=== PATIENT | male | born 1950 | race Caucasian/White ===

== ENCOUNTER 2021-11-19 16:36 | Emergency (ER) | payer OTHER ==
[2021-11-19 17:06] VITALS: BP 159/76; PULSE 77; RESP 18
[2021-11-19 17:35] LABS: HCT 44.4 % (39.0-53.0); HGB 14.4 gm/dL (13.0-17.5); MCH 30.8 pg (25.0-35.0); MCHC 32.4 g/dL (31.0-37.0); Mean Platelet Volume 7.8; Platelet Count 383 k/uL (150-450); RBC 4.67 m/uL (4.30-5.90); RDW 13.9 % (11.5-15.5); WBC 13.3 k/uL (3.8-10.6)
[2021-11-19 17:45] LABS: Albumin 4.4 g/dL (3.5-5.0); Calcium 10.1 mg/dL (8.4-10.2); Potassium 4.1 mmol/L (3.5-5.1); Total Protein 7.7 g/dL (6.3-8.2)
[2021-11-19 17:48] LABS: Appearance,Urine Clear (Clear); Bilirubin,Urine 2+ (Negative); Blood,Urine Negative (Negative); Color,Urine Dark Yellow; Glucose,Urine (UA) Negative (Negative); Hyaline Casts,Urine 9 /lpf (0-2); Ketones,Urine Negative (Negative); Leukocyte Esterase,Urine Negative (Negative); Mucus,Urine Rare /hpf; Nitrite,Urine Negative (Negative); PH, Urine 5.5 (5.0-8.0); Protein,Urine 1+ (Negative); RBC,Urine 1 /hpf (0-5); Specific Gravity,Urine 1.018 (1.001-1.035); Squamous Epithelial Cell,Urine <1 /hpf (0-4); WBC,Urine 1 /hpf (0-5)
[2021-11-19] MEDS ORDERED: SODIUM CHLORIDE 0.9% 1,000 ML IV STA (18:32)
--- NOTE | 2021-11-19 20:41 | CT ---
EXAMINATION TYPE: CT abdomen pelvis w con CT DLP: 2236 mGycm, Automated exposure control for dose reduction was used. DATE OF EXAM: 11/19/2021 7:53 PM COMPARISON: None. CLINICAL INDICATION:Male, 71 years old with history of abdominal pain, acute, nonlocalized; TECHNIQUE: Standard CT of the abdomen and pelvis following the administration of 100 cc of Isovue 3 00 IV contrast material. Coronal and sagittal reformats were performed. FINDINGS: LOWER CHEST: Unremarkable ABDOMEN LIVER: Unremarkable GALLBLADDER AND BILE DUCTS: There is intrahepatic and extra hepatic biliary ductal dilatation. Densit y debris is seen within the bile duct. There is distended gallbladder present with layering low-level debris. PANCREAS: Unremarkable. SPLEEN: Unremarkable. ADRENAL GLANDS: Hypoattenuating lesion within the right adrenal gland edging up to 5.8 x 5.2 cm consi stent with myolipoma. KIDNEYS AND URETERS: No evidence of hydronephrosis or renal calculus. The ureters are unremarkable. L ateral to small to characterize cysts . symmetric bilateral perinephric fat stranding. PELVIS BLADDER: Nondistended and grossly unremarkable.. REPRODUCTIVE: Unremarkable. ABDOMEN & PELVIS STOMACH AND BOWEL: No evidence of bowel obstruction. The appendix is visualized and unremarkable. PERITONEUM: No evidence of pneumoperitoneum or free fluid. VASCULATURE: Mild atherosclerotic calcifications are present throughout the abdominal aorta and its b ranches. MUSCULOSKELETAL: Mild disc degeneration changes are present throughout the thoracolumbar spine.. Righ t gluteus medius intramuscular lipoma. Multilevel disc bulging is seen throughout the spine. LYMPH NODES: No gross evidence for lymphadenopathy. SOFT TISSUE/ABDOMINAL WALL: Unremarkable IMPRESSION: 1. Findings concerning for choledocholithiasis with biliary obstruction with a dilated gallbladder o n transaxial hepatic biliary ductal dilatation pronounced in the common hepatic duct multiple filling defects seen within the common bile duct likely representing gallstones/choledocholithiasis. ERCP is recommended for definitive treatment. 2. Right adrenal myolipoma.
--- NOTE | 2021-11-19 20:43 | US ---
EXAMINATION TYPE: US gallbladder DATE OF EXAM: 11/19/2021 COMPARISON: NONE CLINICAL HISTORY: abdominal pain, acute, nonlocalized. Epigastric pain, RUQ pain, nausea EXAM MEASUREMENTS: Liver Length: 15.5 cm Gallbladder Wall: 0.4 cm CBD: 1.7 cm Right Kidney: 12.3 x 5.2 x 4.2 cm Pancreas: Tail obscured by overlying bowel gas, visualized portions appear heterogeneous. Duct = 0.4 cm Liver: dilated intrahepatic ducts Gallbladder: multiple stones. Borderline hydropic = 10.2cm Evidence for sonographic De La Torre's sign: no CBD: dilated Right Kidney: no evidence of hydronephrosis IMPRESSION: 1. Cholelithiasis with dilated common bile duct measuring up to 17 mm. Consider mesenteritis can if c oncern for cholecystitis. Consider MRCP if concerned for choledocholithiasis. 2. Hepatic steatosis with intrahepatic ductal dilatation.
[2021-11-19 21:07] LABS: Prothrombin Time 10.6 sec (9.0-12.0)
[2021-11-19 21:17] LABS: Partial Thromboplastin Time 21.6 sec (22.0-30.0)
[2021-11-19] MEDS ORDERED: cefTRIAXone IN SWFI 1,000 MG/10 ML SYRINGE IVP STA (21:27)
--- NOTE | 2021-11-19 21:50 | ED ---
General Adult HPI - General Chief complaint: Urogenital Stated complaint: abd pain Time Seen by Provider: 11/19/21 17:47 Source: patient, RN notes reviewed, old records reviewed Mode of arrival: ambulatory Limitations: no limitations - History of Present Illness Initial comments: Patient is a 71-year-old male with past medical history that is remarkable for hypertension. He presents emergency Department complaining of nonspecific right-sided abdominal discomfort. I evaluated the patient once he was placed in a room. This is been ongoing for multiple days. He has also notices urine has become more dark. He has not noticed any skin changes. Nurse's he is having difficulty tolerating any form of by mouth intake, however is still able to drink water. Denies any diarrhea, nausea, vomiting. States he has decreased appetite. Denies any fevers, chills, sick contacts, chest pain, cough. Denies any shortness of breath. His no history of abdominal surgery. Denies any change in bowel movements. Presents emergency department over concern for his abdominal discomfort of unknown etiology. Laboratory studies were started in triage. - Related Data Home Medications Medication Instructions Recorded Confirmed Allopurinol [Zyloprim] 50 mg PO DAILY 11/19/21 11/19/21 Lisinopril [Zestril] 10 mg PO DAILY 11/19/21 11/19/21 [place]-3 Fatty Acids/Fish Oil [Fish 1 cap PO DAILY 11/19/21 11/19/21 Oil 1,000 mg Softgel] amLODIPine [Norvasc] 5 mg PO DAILY 11/19/21 11/19/21 atenoloL [Tenormin] 25 mg PO DAILY 11/19/21 11/19/21 Allergies Allergy/AdvReac Type Severity Reaction Status Date / Time No Known Allergies Allergy Verified 11/19/21 22:04 Review of Systems ROS Statement: Those systems with pertinent positive or pertinent negative responses have been documented in the HPI. Review of Systems: CONST: Denies fever EYES: Denies blurry vision ENT: Denies nasal congestion C/V: Denies Chest pain RESP: Denies shortness of breath GI: Endorses abdominal pain : Denies dysuria SKIN: Denies rash. MSK: Denies joint pain. NEURO: Denies headache ROS Other: All systems not noted in ROS Statement are negative. Past Medical History Past Medical History: Hypertension History of Any Multi-Drug Resistant Organisms: None Reported Past Surgical History: No Surgical Hx Reported Past Psychological History: PTSD Smoking Status: Current every day smoker Past Alcohol Use History: None Reported Past Drug Use History: None Reported General Exam - General Exam Comments Initial Comments: General: Appears in no acute distress. HEAD: Normal with no signs of head trauma. EYES: PERRLA, EOMI. Patient does have some scleral icterus. ENT: Hearing grossly intact, normal oropharynx. RESPIRATORY: Clear breath sounds bilaterally. No wheezes, rales, or rhonchi. C/V: Regular rate and rhythm. S1 and S2 auscultated, no edema, peripheral pulses 2+ and intact throughout ABD: Abdomen is soft, nondistended. He is pretty much nontender to palpation, with mild tenderness in the right upper quadrant. No CVA tenderness on percussion. No rebound tenderness, guarding, peritoneal signs. EXT: Normal range of motion, no obvious deformity SKIN: No rashes or lesions observed on exposed skin. NEURO: Alert and oriented 4. Limitations: no limitations Course Vital Signs 11/19/21 17:00 Temperature 97.8 F Pulse Rate 77 Respiratory 18 Rate Blood Pressure 159/76 O2 Sat by Pulse 96 Oximetry Medical Decision Making - Medical Decision Making Based on the patient's presentation and physical exam, I'm concerned for possible acute intra-abdominal process for this patient, including hepatobiliary disease. Basic laboratory studies were already ordered and I will add on a dditional studies. He does have some signs of elevated bilirubins. We will also obtain CT and pelvis as well as ultrasound of the gallbladder in addition to providing 1 L fluid bolus. He declines analgesia at this time. Laboratory studies were remarkable for mild leukocytosis of 13. Patient does show signs of biliary obstruction, with elevated AST of 92, ALT of 204, alk phos of 302. Total bilirubin is 6.0. Albumin is within normal limits at 4.4. Bilirubin fractures were ordered but are still pending at this time. Urine is remarkable for dark in color, as well as 2+ bilirubin coags are within normal limits. Patient's ultrasound and CT imaging were remarkable for findings concerning for choledocholithiasis as well as increased size of the CBD. Is also hepatic psittacosis and intrahepatic ductal dilation ultrasound. There is also a right adrenal myelolipoma. Both imaging studies recommend follow-up studies of ERCP or MRCP for treatment. Patient will be given a dose of Rocephin at this time, for possible cholecystitis. On reevaluation, patient remains relatively stable. Vital signs remained stable throughout his stay. Denies any significant abdominal pain or change in status. His symptoms of been ongoing for multiple days. I discussed the findings on laboratory studies and imaging. The patient expressed understanding. He does require I and neurology evaluation, however we do not have gastroenterology at our facility for the next 2 weeks. Therefore the patient requires transfer. Patient is requesting transfer to [facility] at this time. We spoke with [facility] over the phone, however they state that they are not accepting any chances. I did discuss this with the patient, and he understands that he requires gastroenterology to be treated which we do not have our facility. They elected to leave AGAINST MEDICAL ADVICE with likely follow-up with a another facility, as they are well aware that transferring during the caring COVID-19 pandemic is extremely difficult..The patient was apprised of the potential risks of leaving the hospital AGAINST MEDICAL ADVICE, including serious complications, permanent disability, and . At the time of my interview the patient, the patient was alert, oriented, and capable. Patient signed AMA form, which was witnessed and signed by nursing staff, and placed in patient's chart. I urged the patient to return to the hospital as soon as possible to complete evaluation and treatment. The patient did request that I discharged him with his laboratory studies, imaging, as well as imaging disc which I can provide with him. I did speak with him that it is imperative that if he does not return to this hospital, he needs to return for further care with a GI specialist. He expressed understanding. Patient therefore left AGAINST MEDICAL ADVICE. - Lab Data Result diagrams: 11/19/21 17:25 11/19/21 17:25 Lab Results 11/19/21 11/19/21 11/19/21 Range/Units 17:25 17:25 17:25 WBC 13.3 H (3.8-10.6) k/uL RBC 4.67 (4.30-5.90) m/uL Hgb 14.4 (13.0-17.5) gm/dL Hct 44.4 (39.0-53.0) % MCV 95.0 (80.0-100.0) fL MCH 30.8 (25.0-35.0) pg MCHC 32.4 (31.0-37.0) g/dL RDW 13.9 (11.5-15.5) % Plt Count 383 (150-450) k/uL MPV 7.8 PT (9.0-12.0) sec INR (<1.2) APTT (22.0-30.0) sec Sodium 137 (137-145) mmol/L Potassium 4.1 (3.5-5.1) mmol/L Chloride 102 (98-107) mmol/L Carbon Dioxide 24 (22-30) mmol/L Anion Gap 11 mmol/L BUN 24 H (9-20) mg/dL Creatinine 1.06 (0.66-1.25) mg/dL Est GFR (CKD-EPI)AfAm 81 (>60 ml/min/1.73 sqM) Est GFR (CKD-EPI)NonAf 70 (>60 ml/min/1.73 sqM) Glucose 119 H (74-99) mg/dL Calcium 10.1 (8.4-10.2) mg/dL Total Bilirubin 6.0 H (0.2-1.3) mg/dL AST 92 H (17-59) U/L ALT 204 H (4-49) U/L Alkaline Phosphatase 302 H (38-126) U/L Total Protein 7.7 (6.3-8.2) g/dL Albumin 4.4 (3.5-5.0) g/dL Urine Color Dark Yellow Urine Appearance Clear (Clear) Urine pH 5.5 (5.0-8.0) Ur Specific [place] 1.018 (1.001-1.035) Urine Protein 1+ H (Negative) Urine Glucose (UA) Negative (Negative) Urine Ketones Negative (Negative) Urine Blood Negative (Negative) Urine Nitrite Negative (Negative) Urine Bilirubin 2+ H (Negative) Urine Urobilinogen 6.0 (<2.0) mg/dL Ur Leukocyte Esterase Negative (Negative) Urine RBC 1 (0-5) /hpf Urine WBC 1 (0-5) /hpf Ur Squamous Epith Cells <1 (0-4) /hpf Hyaline Casts 9 H (0-2) /lpf Urine Mucus Rare H (None) /hpf 11/19/21 Range/Units 19:27 WBC (3.8-10.6) k/uL RBC (4.30-5.90) m/uL Hgb (13.0-17.5) gm/dL Hct (39.0-53.0) % MCV (80.0-100.0) fL MCH (25.0-35.0) pg MCHC (31.0-37.0) g/dL RDW (11.5-15.5) % Plt Count (150-450) k/uL MPV PT 10.6 (9.0-12.0) sec INR 1.0 (<1.2) APTT 21.6 L (22.0-30.0) sec Sodium (137-145) mmol/L Potassium (3.5-5.1) mmol/L Chloride (98-107) mmol/L Carbon Dioxide (22-30) mmol/L Anion Gap mmol/L BUN (9-20) mg/dL Creatinine (0.66-1.25) mg/dL Est GFR (CKD-EPI)AfAm (>60 ml/min/1.73 sqM) Est GFR (CKD-EPI)NonAf (>60 ml/min/1.73 sqM) Glucose (74-99) mg/dL Calcium (8.4-10.2) mg/dL Total Bilirubin (0.2-1.3) mg/dL AST (17-59) U/L ALT (4-49) U/L Alkaline Phosphatase (38-126) U/L Total Protein (6.3-8.2) g/dL Albumin (3.5-5.0) g/dL Urine Color Urine Appearance (Clear) Urine pH (5.0-8.0) Ur Specific [place] (1.001-1.035) Urine Protein (Negative) Urine Glucose (UA) (Negative) Urine Ketones (Negative) Urine Blood (Negative) Urine Nitrite (Negative) Urine Bilirubin (Negative) Urine Urobilinogen (<2.0) mg/dL Ur Leukocyte Esterase (Negative) Urine RBC (0-5) /hpf Urine WBC (0-5) /hpf Ur Squamous Epith Cells (0-4) /hpf Hyaline Casts (0-2) /lpf Urine Mucus (None) /hpf Disposition Clinical Impression: Choledocholithiasis, Left against medical advice, Hyperbilirubinemia, Scleral icterus, Biliary obstruction Disposition: Left Against Medical Advice Condition: Stable Instructions (If sedation given, give patient instructions): Gallstones (ED) Additional Instructions: You have choledocholithiasis, which is a gallstone obstruction of your Biliary duct. Requires gastroenterology for treatment. As you are leaving AMA, please follow up as soon as possible at a facility with gastroenterology present. Is patient prescribed a controlled substance at d/c from ED?: No Referrals: Nonstaff,Physician [Primary Care Provider] - 1-2 days
[2021-11-19 22:47] VITALS: TEMP 97.6
== END 2021-11-19 22:40 | disposition left against medical advice (07) ==
LOC: EC 16:36
DX: E80.6 Other disorders of bilirubin metabolism (principal); K80.51 Calculus of bile duct without cholangitis or cholecystitis with obstruction; R17 Unspecified jaundice; F17.200 Nicotine dependence, unspecified, uncomplicated; I10 Essential (primary) hypertension; Z79.899 Other long term (current) drug therapy; Z53.29 Procedure and treatment not carried out because of patient's decision for other reasons
CPT/HCPCS: 36415; 80053; 85027; 85610; 85730; 81001; 76705; 74177; 99284; 96374; 96361; J0696; Q9967

== ENCOUNTER → 2022-08-03 | Outpatient (CLI) | payer OTHER | END | disposition home or self-care (01) | LOC: LABPAT 13:04 | PROVIDERS: ATTEND Orthopaedic Surgery | DX: Z01.812 Encounter for preprocedural laboratory examination (principal); M16.12 Unilateral primary osteoarthritis, left hip; Z22.322 Carrier or suspected carrier of Methicillin resistant Staphylococcus aureus | CPT/HCPCS: 87070 ==

== ENCOUNTER 2022-08-09 11:04 | Day surgery (SDC) | payer OTHER ==
[2022-08-04 16:12] VITALS: BMI 33.6
--- NOTE | 2022-08-08 09:15 | P.HPOR ---
History of Present Illness H&P Date: 08/08/22 Chief Complaint: Left hip pain The patient is a 71-year-old retired male who presents with progressive left hip pain for the past several years worsening recently. He notes anterior thigh and groin pain worse with weightbearing activities. He has a difficult time getting up from a seated position. He is having night symptoms. He is ambulating with a cane. Review of Systems As per HPI Past Medical History Past Medical History: Blood Disorder, Hypertension, Osteoarthritis (OA) Additional Past Medical History / Comment(s): "Elevated WBC on and off for years." Gout. History of Any Multi-Drug Resistant Organisms: None Reported Past Surgical History: Cholecystectomy, Hernia Repair Past Anesthesia/Blood Transfusion Reactions: No Reported Reaction Past Psychological History: PTSD Smoking Status: Current every day smoker Past Alcohol Use History: None Reported Additional Past Alcohol Use History / Comment(s): Has been smoking for 50 yrs, 1 ppd. "No alcohol in over 20 yrs." Past Drug Use History: None Reported Additional Drug Use History / Comment(s): CBD Oils. - Past Family History Mother Family Medical History: No Reported History Medications and Allergies Home Medications Medication Instructions Recorded Confirmed Type allopurinoL [Zyloprim] 50 mg PO DAILY 11/19/21 08/04/22 History atenoloL [Tenormin] 25 mg PO DAILY 11/19/21 08/04/22 History Acetaminophen [Tylenol Arthritis] 650 mg PO DIRECTED PRN 08/04/22 08/04/22 History HYDROcodone/APAP 5-325MG [Madeline 1 tab PO Q8H PRN 08/04/22 08/04/22 History 5-325] Lisinopril-Hctz 20-25 mg 1 tab PO DAILY 08/04/22 08/04/22 History [Zestoretic 20-25] Melatonin (Dose Unknown) 1 tab PO HS 08/04/22 08/04/22 History Vitamin C (Unknown Dose) 1 tab PO DAILY 08/04/22 08/04/22 History Vitamin D (Dose Unknown) 1 tab PO DAILY 08/04/22 08/04/22 History amLODIPine BESYLATE 5 mg PO DAILY 08/04/22 08/04/22 History Allergies Allergy/AdvReac Type Severity Reaction Status Date / Time No Known Allergies Allergy Verified 08/04/22 15:51 Physical Examination - Hip left Gait: antalgic Tenderness with palpation: anterior Pain with motion: internal rotation and hip flexion ROM: flexion: 80 degrees ROM: internal rotation: 0 degrees ROM: external rotation: 60 degrees Strength: extension: 5/5 Strength: flexion: 5/5 Strength: abduction: 5/5 Tests: impingement tests: positive Results The patient is a well-developed well-nourished male. 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 HEENT exam is nonfocal, neck is supple. He has limited painful motion of his left hip. Clinically he has 1 cm of shortening of the left lower extremity compared the right. He has an antalgic gait pattern. His distal neurovascular appears intact in the left lower extremity. - Diagnostic results Hip x-ray: image reviewed (Left hip 2 view show severe osteoarthrosis with [id number] changes and subchondral sclerosis.) Assessment and Plan Assessment: Left hip severe osteoarthrosis Plan: I talked with the patient length regarding his condition along with treatment options. He is significantly limited because of pain related to his osteoarthrosis despite previous conservative measures. After thorough discussion has proceed with surgery. We'll plan to proceed with left total hip arthroplasty utilizing a lateral approach. Risks and benefits were discussed at length in layman's terms. We will institute DVT prophylaxis postoperatively. Time with Patient: Less than 30
[~2022-08-09 11:04] MED LIST: ACETAMINOPHEN TAB 500 MG TAB PO PRN; DEXAMETHASONE SOD PHOSPHATE 4 MG/ML 1 ML VIAL IV ONE; LIDOCAINE 1% (10MG/ML) FOR IV START INTRADERMA PRN; MELOXICAM 7.5 MG TAB PO PRN; ONDANSETRON 4 MG/2 ML VIAL IVP ONE; TRANEXAMIC ACID IN NACL,ISO-OS 1,000 MG in SALINE 1 100ML.BAG IVPB PRN
[2022-08-09] MEDS: LACTATED RINGERS 1,000 ML IV SCH ×2 (11:57→21:54)
[2022-08-09] MEDS ORDERED: MIDAZOLAM 2 MG/2 ML VIAL IVP ONE (12:01)
[2022-08-09] MEDS ORDERED: fentaNYL (PF) 50 MCG/ML 2 ML AMP IVP ONE (12:01)
[2022-08-09] MEDS ORDERED: HYDROmorphone (PF) 1 MG/ML ONE (12:56)
[2022-08-09] MEDS ORDERED: fentaNYL (PF) 50 MCG/ML 2 ML AMP ONE (12:56)
[2022-08-09] MEDS ORDERED: ROPIVACAINE 5 MG/ML 30 ML VIAL ONE (12:56)
[2022-08-09] MEDS ORDERED: PROPOFOL 10 MG/ML 20 ML VIAL IV ONE (12:56)
[2022-08-09] MEDS ORDERED: NEOSTIGMINE 1 MG/ML 10 ML VIAL ONE (12:56)
[2022-08-09] MEDS ORDERED: ROCURONIUM 10 MG/ML (5 ML VIAL) IV ONE (12:56)
[2022-08-09] MEDS ORDERED: LIDOCAINE 2% INJ 20 MG/ML (2 ML VIAL) ONE (12:56)
[2022-08-09] MEDS ORDERED: SUCCINYLCHOLINE CHLORIDE 200 MG/10 ML VIAL IV ONE (12:56)
[2022-08-09] MEDS ORDERED: TRANEXAMIC ACID IN NACL,ISO-OS 1,000 MG/100 ML BAG ONE (12:56)
[2022-08-09] MEDS ORDERED: GLYCOPYRROLATE 0.2 MG/ML 2 ML VIAL ONE (12:56)
[2022-08-09] MEDS ORDERED: ePHEDrine 50 MG/ML 1 ML VIAL ONE (12:56)
--- NOTE | 2022-08-09 13:27 | P.ANPRN ---
Procedure Note - Anesthesia - Nerve Block Performed Left Erector Spinae Single Time Out Performed: Yes (1200) Date of Procedure: 08/09/22 Procedure Start Time: 12:01 Procedure Stop Time: 12:06 Location of Patient: PreOp Indication: Acute Post-Operative Pain, Requested by Surgeon Specifically requested for management of pain by : Tyrone Esquivel Sedation Type: Sedate with meaningful contact maintained Preparation: Sterile Prep Position: Sitting Catheter: None Needle Types: Pajunk Needle Gauge: 21 Ultrasound used to visualize needle placement: Yes Ultrasound used to observe medication spread: Yes Injectate: 0.5% Ropivacaine (see comment for volume) (30cc) Blood Aspirated: No Pain Paresthesia on Injection Noted: No Resistance on Injection: Normal Image Stored and Saved: Yes Events: Uneventful and Well Tolerated
[2022-08-09] MEDS ORDERED: LACTATED RINGERS 1,000 ML IV ONE (14:09)
[2022-08-09] MEDS ORDERED: HYDROcodone/APAP 5-325MG 1 EACH TAB PO PRN (14:46)
[2022-08-09] MEDS ORDERED: NALOXONE 0.4 MG/ML 1 ML VIAL IV PRN (14:46)
[2022-08-09] MEDS ORDERED: HYDROmorphone 0.5 MG/0.5 ML SYRINGE IVP PRN (14:46)
--- NOTE | 2022-08-09 15:09 | P.OP ---
Date of Procedure: 08/09/22 Preoperative Diagnosis: Severe left hip osteoarthrosis Postoperative Diagnosis: Same Procedure(s) Performed: Left total hip arthroplastypress-fitlateral approach Implants: Depuy Corail size 13 collared high offset press-fit femoral stem, 36+8 cobalt chrome femoral head, 58 mm [place] acetabular shell with neutral polyethylene liner. Anesthesia: VEDA Surgeon: Tyrone Esquivel Cut Order Hand #1: Luis Miguel Canas Estimated Blood Loss (ml): 300 Pathology: other (Femoral head) Condition: stable Disposition: PACU Indications for Procedure: The patient 71-year-old male presents with progressive left hip pain secondary to osteoarthrosis despite conservative measures. A discussion of the risks and benefits of operative intervention versus continued conservative measures was made with patient. He opted to proceed with surgery. Operative risks to include infection, neurovascular injury, development of blood clots, fracture, ligamentous, possible instability, possible component loosening/failure and possible need for subsequent procedures was discussed. Informed consent was obtained. Operative Findings: As below Description of Procedure: The patient was brought to the operating room, and after induction of general anesthesia was placed in a lateral decubitus position. The bony prominences were appropriately padded. The pelvis was stable perpendicular to the floor w ith a pegboard. The left lower extremity was prepped and draped in normal fashion. A 12 cm incision was then made centered over the greater trochanter extending superiorly to level the ASIS and distally in line with the femoral shaft. The skin and subcutaneous tissues were divided sharply. Electrocautery was used for hemostasis. The fascia nicholas and gluteus fernando fascia was split in line with the skin incision. The muscle fibers were bluntly dissected proximally. A self-retaining retractor was placed. The anterior and posterior margins of the gluteus medius muscles identified and the anterior two thirds was detached from the greater trochanter with electrocautery. The gluteus minimus tendon was identified and detached in a similar fashion. A wide capsulotomy was performed. The femoral neck fracture was identified in the lower neck cut was made approximately 1 1/2 cm above the level of the lesser trochanter with a sagittal saw at a 45 the shaft. The head was then extracted with a corkscrew. Attention was then paid towards preparing the acetabular. Anterior and posterior retractors were placed. The remaining capsular labral tissues debrided sharply clearly defining the acetabular margins. Began reaming with a 53 mm reamer taking care to initially medialize, then reaming at 45 of abduction and 20 of anteversion. Sequential reaming is performed up to 57 mm. This was down to bleeding bony surface. A trial 58 mm acetabular shell was inserted at 45 of abduction and 20 of anteversion. This was fully seated. There was good rim fit and stability. A neutral polyethylene liner was then impacted. Care taken to avoid any soft tissue interposition. Attention was then paid towards preparing the proximal femur. A box chisel was used to open the metaphyseal region. A canal finder was used to find the femoral canal. Sequential broaching was performed up to a size 13. This is placed in 15 of anteversion with the leg perpendicular floor judging off the trans-epicondylar axis. There is good rotational stability. A calcar mill was used to fashion the medial calcar. A trial high offset neck along with a 36 mm + 8 trial head was placed. The hip was gently reduced. It was taken through range of motion. I felt to be stable in flexion and extension with internal and external rotation. I felt there was adequate baptist of soft tissue tension. The hip was gently dislocated. The trial components removed. Pulsatile lavage was utilized. The final size 13 standard collared femoral stem was inserted again with the leg perpendicular to the floor in 15 of anteversion. Again there was good rotational stability. A 36 mm +8 cobalt chrome femoral head was gently impacted. The hip was gently reduced. Again it was taken through motion and felt to be stable in flexion and extension with internal and external rotation. Pulsatile lavage was again utilized. With the leg in abduction the gluteus minimus and medius tendons reattached to the greater trochanter with #2 Ethibond suture. There was minimal drainage therefore a deep drain was not placed. The fascia nicholas and gluteus fernando fascia was closed with #2 Ethibond suture. The subcutaneous tissues were reapproximated interrupted 2-0 Vicryl sutures. The skin was reapproximated with 3-0 subcuticular strata fix suture. Skin tape and adhesive was applied. A sterile dressing was applied. The patient was awoken from sedation and transferred to recovery room in good condition. Blood loss was estimated 300 mL. No complications were incurred. Sponge and needle counts were correct in the case. Luis Miguel Canas PA assisted during the major composes case to include exposure, implantation, and closure.
[2022-08-09] MEDS: HYDROmorphone 0.5 MG/0.5 ML SYRINGE IVP PRN ×6 (15:15→20:23)
--- NOTE | 2022-08-09 15:32 | XR ---
EXAMINATION TYPE: XR Hip Limited LT DATE OF EXAM: 08/09/2022 CLINICAL HISTORY: Left hip pain and osteoarthritis. TECHNIQUE: Single AP portable view of left hip is obtained immediately postoperatively. COMPARISON: Outside left hip x-ray June 10, 2022. FINDINGS: Metallic hardware from left hip arthroplasty is seen and appears satisfactory in alignment and position. There is evidence of recent surgery with subcutaneous gas noted extending laterally. IMPRESSION: Metallic hardware from left hip arthroplasty is satisfactory in position.
[2022-08-09] MEDS ORDERED: hydrALAZINE HCL 20 MG/ML 1 ML VIAL IVP ONE (15:42)
[2022-08-09] MEDS: HYDROcodone/APAP 7.5-325MG 1 EACH TAB PO PRN (17:24)
[2022-08-09] MEDS ORDERED: BENZOCAINE/MENTHOL LOZENG 1 EACH LOZENGE MUCOUS MEM PRN (20:45)
[2022-08-09] MEDS ORDERED: MELATONIN 3 MG TABLET PO SCH (21:00)
[2022-08-09] MEDS: NICOTINE 14MG/24HR PATCH TRANSDERM SCH (21:54)
[2022-08-09] MEDS ORDERED: MELATONIN 3 MG TABLET PO PRN (22:39)
--- NOTE | 2022-08-10 00:21 | P.CONS ---
History of Present Illness - Reason for Consult Consult date: 08/09/22 post op medical management - Chief Complaint left total hip replacement - History of Present Illness 71 year old male with hypertension , OA patient presented for scheduled left total hip arthroplasty due to severe advanced OA that failed OP conservative measures , patient tolerated procedure well, no observed immediate post op complications. tolerated PO intake , was able to walk with assistance he denies any chest pain , trouble breathing , difficulty urinating, nausea or vomiting. pain is well tolerated with meds. patient admits to tobacco smoking, denies any illicit drugs or heavy daily alcohol consumption Review of Systems Pertinent positives as noted in HPI. All other systems were reviewed and are negative Past Medical History Past Medical History: Blood Disorder, Hypertension, Osteoarthritis (OA) Additional Past Medical History / Comment(s): "Elevated WBC on and off for y ears." Gout. Marketing Content Manager said pt " may have had heart attacl at some point in life" per pt. History of Any Multi-Drug Resistant Organisms: None Reported Past Surgical History: Cholecystectomy, Hernia Repair Past Anesthesia/Blood Transfusion Reactions: No Reported Reaction Past Psychological History: Anxiety, PTSD Smoking Status: Current every day smoker Past Alcohol Use History: None Reported Additional Past Alcohol Use History / Comment(s): Has been smoking for 50 yrs, 1 ppd. "No alcohol in over 20 yrs." Past Drug Use History: None Reported Additional Drug Use History / Comment(s): CBD Oils. - Past Family History Mother Family Medical History: No Reported History Additional Family Medical History / Comment(s): denies CAD or cancer Medications and Allergies Home Medications Medication Instructions Recorded Confirmed Type allopurinoL [Zyloprim] 50 mg PO DAILY 11/19/21 08/04/22 History atenoloL [Tenormin] 25 mg PO DAILY 11/19/21 08/04/22 History Acetaminophen [Tylenol Arthritis] 650 mg PO DIRECTED PRN 08/04/22 08/04/22 H istory HYDROcodone/APAP 5-325MG [[place] 1 tab PO Q8H PRN 08/04/22 08/04/22 History 5-325] Lisinopril-Hctz 20-25 mg 1 tab PO DAILY 08/04/22 08/04/22 History [Zestoretic 20-25] Melatonin (Dose Unknown) 1 tab PO HS 08/04/22 08/04/22 History Vitamin C (Unknown Dose) 1 tab PO DAILY 08/04/22 08/04/22 History Vitamin D (Dose Unknown) 1 tab PO DAILY 08/04/22 08/04/22 History amLODIPine BESYLATE 5 mg PO DAILY 08/04/22 08/04/22 History Apixaban [Eliquis] 2.5 mg PO BID #60 tab 08/09/22 Rx Docusate [Colace] 100 mg PO DAILY #30 capsule 08/09/22 Rx HYDROcodone/APAP 7.5-325MG [[place] 1 each PO Q6HR PRN #28 tab 08/09/22 Rx 7.5] Allergies Allergy/AdvReac Type Severity Reaction Status Date / Time No Known Allergies Allergy Verified 08/04/22 15:51 Physical Exam Vitals: Vital Signs Temp Pulse Resp BP Pulse Ox 08/09/22 20:12 69 15 08/09/22 20:11 97.5 F L 69 15 159/74 95 08/09/22 17:45 74 16 172/62 96 08/09/22 17:17 65 16 172/73 96 08/09/22 16:38 52 L 16 169/74 98 08/09/22 16:23 64 16 187/78 98 08/09/22 16:08 44 L 16 182/75 97 08/09/22 15:53 51 L 16 193/83 97 08/09/22 15:38 56 L 16 203/86 98 08/09/22 15:23 58 L 18 201/86 100 08/09/22 15:08 97 F L 58 L 14 162/82 97 08/09/22 12:10 58 L 18 146/66 97 08/09/22 11:56 97.6 F 62 18 156/73 97 Intake and Output 08/09/22 08/09/22 08/10/22 14:59 22:59 06:59 Intake Total 1150 50 Output Total 300 Balance 850 50 Intake: IV 1150 50 Output: Estimated Blood Loss 300 Other: Voiding Method Toilet # Voids 1 Weight 115.1 kg 115.1 kg Constitutional: No acute distress, conversant, pleasant Eyes: Anicteric sclerae, moist conjunctiva, Pupils equal round reactive to light ENMT: NC/AT Oropharynx clear, no erythema, or exudates Neck: Supple, no masses, or JVD No carotid bruits No thyromegaly Lungs: Clear to auscultation Clear to percussion Normal respiratory effort, no accessory muscle use Cardiovascular: Heart regular in rate and rhythm, No murmurs, gallops, or rubs No peripheral edema Abdominal: Soft Nontender, no guarding, rebound or rigidity Abdomen moving with respiration Normoactive bowel sounds No hepatomegaly, No splenomegaly No palpable mass No abdominal wall hernia noted Skin: Normal temperature, tone, texture, turgor No induration No subcutaneous nodules No rash, lesions No ulcers Extremities: No digital cyanosis No clubbing Pedal pulses intact and symmetrical Radial pulses intact and symmetrical No calf tenderness Psychiatric: Alert and oriented to person, place and time Appropriate affect fair judgement Neuro Muscles Strength 5/5 in bilateral upper and rifht lower extremity , limited exam over left lower extremity due to recent surgery Sensation to light touch grossly present throughout Cranial nerves II-XII grossly intact No focal sensory deficits Lymphatics: no palpable cervical or supraclavicular , or inguinal lymph nodes Assessment and Plan Assessment: hypertension , controlled resume lisinopril , amlodipine , atenolol nicotine dependance , daily smoking counseled to quit smoking nicotine replacement therapy severe left hip OA, s/p left total hip arthroplasty pain and DVT management per orthopedic team full code check BMP and CBC in AM Thank you for allowing us to participate in the care of this patient. We will follow peripherally. Do not hesitate to contact us with questions. Someone can be reached from the [facility] hospitalist group at all hours of the day at [phone].
[2022-08-10] MEDS: HYDROmorphone 0.5 MG/0.5 ML SYRINGE IVP PRN ×3 (01:15→11:46)
[2022-08-10] MEDS: HYDROcodone/APAP 7.5-325MG 1 EACH TAB PO PRN ×2 (05:47→11:45)
[2022-08-10] MEDS: NICOTINE 14MG/24HR PATCH TRANSDERM SCH (08:25)
[2022-08-10 08:27] VITALS: BP 144/65; PULSE 71
[2022-08-10 08:58] VITALS: RESP 18; TEMP 97.9
[2022-08-10] MEDS ORDERED: atenoloL 25 MG TAB PO SCH (09:00)
[2022-08-10] MEDS ORDERED: LISINOPRIL-HCTZ 20-25 MG 1 EACH TAB PO SCH (09:00)
[2022-08-10] MEDS ORDERED: RIVAROXABAN 10 MG TAB PO SCH (09:00)
[2022-08-10] MEDS ORDERED: allopurinoL 100 MG TAB PO SCH (09:00)
[2022-08-10] MEDS ORDERED: amLODIPine 5 MG TAB PO SCH (09:00)
--- NOTE | 2022-08-10 11:40 | P.DS ---
Providers Date of admission: 08/09/2022 Expected date of discharge: 08/10/22 Attending physician: Tyrone Esquivel Consults: 08/09/22 18:09 Consult Physician Routine Consulting Provider: Rula Mcnulty Consult Reason/Comments: medical management Do you want consulting provider notified?: Yes Primary care physician: Physician Nonstaff Hospital Course: Date of admission: 08/09/2022 Date of discharge: 08/10/2022 Admission diagnosis: Left hip osteoarthritis Discharge diagnosis: Same Attending physician: Dr. Esquivel Surgical procedures: Left total hip arthroplasty Brief history: Patient is a 71-year-old male with a history of progressive primary left hip osteoarthritis. At this point patient has failed conservative treatment measures and has opted to proceed with a elective left total hip arthroplasty. Hospital course: Details of patient's surgery can be found in operative report. Patient tolerated the procedure well and was subsequently transported to ortho pedic floor. Patient's orthopeidc and medical care was provided daily. Patient had daily laboratory tests performed for evaluation of overall blood counts. Patient had daily physical therapy to include strengthening range of motion as well as education with walker ambulation. Patient was treated with Xarelto for their postoperative DVT prophylaxis during their inpatient stay. Patient was noted to have a relatively uneventful postoperative course. Patient reported satisfactory pain control with oral pain medications by postoperative day 1. Patient showed satisfactory progress with physical therapy. Patient moved steadily through the program and had no difficulty meeting the goals by postoperative day 1. Given patient's otherwise satisfactory course and having met physical therapy goals, plan is to discharge patient home on postoperative day 1. Discharge condition/disposition: Patient will be discharged home with health services in stable condition. Discharge medications: Instructions are given on resumption of patient's normal daily medications per primary care recommendation, in addition patient will be prescribed [place] 7.5 mg/325 mg; Colace; Eliquis 2.5 mg BID x 2 weeks. Discharge instructions: 1. Wound care and infection precautions, keep incision dry and covered while showering, no lotions, creams, moisturizers. No soaking, tubs, pools, hottubs. Do not scrub over the incision. 2. Weight-bear as tolerated with walker / cane until follow-up. 3. Ice and elevate when necessary. Do not exceed 20 minutes per hour with ice pack. 4. Utilize compression sleeve until seen at first follow up appointment. 5. Visiting nursing care. 6. Home physical therapy including home CPM. 7. Pain meds and anticoagulants per prescription. 8. Pain medication has potential to cause constipation. Increase oral fluid and fiber intake. Contact primary care provider if you have not had a bowel movement within 48 hours after discharge 9. No anti-inflammatory medication until discussed at first post operative visit, this including Motrin, Aleve, Mobic, Diclofenac 10. Follow up in office at 2 weeks postop with Jim Merino PA-C / Luis Miguel Canas PA-C 11. Follow up with your primary care doctor 7-10 days after discharge. 12. Contact [facility] with any questions, . Keep incision clean, dry, intact. While showering, cover fusion tape with Saran wrap. Keep fusion tape on until follow-up appointment in office in 2 weeks Medications: B[place]bridge 7.5 mg/325 mg; Colace; Eliquis 2.5 mg BID x 2 weeks. Assessment: Left hip osteoarthritis Procedures: Left total hip arthroplasty Patient Condition at Discharge: Good Plan - Discharge Summary Discharge Rx Participant: Yes New Discharge Prescriptions: New HYDROcodone/APAP 7.5-325MG [[place] 7.5] 1 each PO Q6HR PRN #28 tab PRN Reason: Pain Docusate [Colace] 100 mg PO DAILY #30 capsule Apixaban [Eliquis] 2.5 mg PO BID #60 tab Continue Lisinopril-Hctz 20-25 mg [Zestoretic 20-25] 1 tab PO DAILY Vitamin C (Unknown Dose) 1 tab PO DAILY allopurinoL [Zyloprim] 50 mg PO DAILY atenoloL [Tenormin] 25 mg PO DAILY amLODIPine BESYLATE 5 mg PO DAILY Melatonin (Dose Unknown) 1 tab PO HS Vitamin D (Dose Unknown) 1 tab PO DAILY No Action HYDROcodone/APAP 5-325MG [[place] 5-325] 1 tab PO Q8H PRN PRN Reason: Pain Acetaminophen [Tylenol Arthritis] 650 mg PO DIRECTED PRN PRN Reason: Pain Discharge Medication List allopurinoL [Zyloprim] 50 mg PO DAILY 11/19/21 [History] atenoloL [Tenormin] 25 mg PO DAILY 11/19/21 [History] Acetaminophen [Tylenol Arthritis] 650 mg PO DIRECTED PRN 08/04/22 [History] HYDROcodone/APAP 5-325MG [[place] 5-325] 1 tab PO Q8H PRN 08/04/22 [History] Lisinopril-Hctz 20-25 mg [Zestoretic 20-25] 1 tab PO DAILY 08/04/22 [History] Melatonin (Dose Unknown) 1 tab PO HS 08/04/22 [History] Vitamin C (Unknown Dose) 1 tab PO DAILY 08/04/22 [History] Vitamin D (Dose Unknown) 1 tab PO DAILY 08/04/22 [History] amLODIPine BESYLATE 5 mg PO DAILY 08/04/22 [History] Apixaban [Eliquis] 2.5 mg PO BID #60 tab 08/09/22 [Rx] Docusate [Colace] 100 mg PO DAILY #30 capsule 08/09/22 [Rx] HYDROcodone/APAP 7.5-325MG [[place] 7.5] 1 each PO Q6HR PRN #28 tab 08/09/22 [Rx] Follow up Appointment(s)/Referral(s): Luis Miguel Canas PAC [PHYSICIAN STATISTICAL GENETICIST] - [address] [facility] [NON-STAFF] - As Needed ([facility] is coordinating home care with 's office. A home care referral was sent to [facility] who participates with the [facility].) Patient Instructions/Handouts: Hydrocodone/Acetaminophen (By mouth), Laxative, Stool Softeners (By mouth), Apixaban (By mouth), Total Hip Replacement (DC) Activity/Diet/Wound Care/Special Instructions: Orthopedic Discharge Instructions: 1. Wound care and infection precautions, keep incision dry and covered while showering, no lotions, creams, moisturizers. No soaking, pools, hot tubs. Do not scrub over incision. 2. Weight-bear as tolerated with walker / cane until follow-up. 3. Ice and elevate when necessary. Do not exceed 20 minutes per hour with ice pack. 4. Utilize compression sleeve until seen at first follow up appointment. 5. Pain meds and anticoagulants per prescription. 6. Pain medication has potential to cause constipation. Increase oral fluid and fiber intake. Contact primary care provider if you have not had a bowel movement within 48 hours after discharge. 7. No anti-inflammatory medication until discussed at first post operative visit, this including Motrin, Aleve, Mobic, Diclofenac. 8. Follow up in office at 2 weeks postop with Jim Merino PA-C / Luis Miguel Canas PA-C 9. Follow up with your primary care doctor 7-10 days after discharge. 10. Contact [facility] with any questions, . Keep incision clean, dry, intact. While showering, cover fusion tape with Saran wrap. Keep fusion tape on until follow-up appointment in office in 2 weeks Medications: B[place]; Colace; Eliquis 2.5 mg BID x 2 weeks Please follow-up with your primary from the [facility] Discharge Disposition: HOME WITH HOME HEALTH SERVICES
--- NOTE | 2022-08-10 11:45 | P.PN ---
Subjective Progress Note Date: 08/10/22 Principal diagnosis: Left hip osteoarthritis Patient was seen at bedside this morning resting comfortably sitting up in chair. Patient says mostly all the pain is in the left hip where surgery was done. Patient denies any radiation of pain. Patient says he is wanting to go home today. Patient says he has walked around the room a few times since surgery yesterday. Patient says she also has been up to the bathroom and urinates time since surgery. Patient says he has not had bowel movement yet, however, patient says he has been passing gas. Patient denies chest pain, fever, shortness breath, nausea, vomiting, change in vision, loss of bowel/bladder control. Objective - Vital Signs Vital signs: Vital Signs Temp 97.9 F 08/10/22 08:00 Pulse 71 08/10/22 08:27 Resp 18 08/10/22 08:00 BP 144/65 08/10/22 08:27 Pulse Ox 95 08/10/22 08:27 FiO2 Intake & Output 08/09/22 08/10/22 08/10/22 18:59 06:59 18:59 Intake Total 1200 Output Total 300 200 Balance 900 -200 Weight 115.1 kg 115.1 kg Intake: IV 1200 Output: Urine 200 Estimated Blood Loss 300 Other: Voiding Method Toilet Toilet # Voids 1 - Exam Left hip: Incision is clean, dry, and intact. The exofin fusion tape is in good condition. There is minimal soft tissue swelling and ecchymosis surrounding the medial and lateral aspects of the incision. Calf is soft, no tenderness with palpation. Plantar flexion, dorsiflexion, EHL, FHL are intact. Sensory exam to light touch throughout the extremity is intact, dorsal pedis pulses 2+. Assessment and Plan Assessment: Left hip osteoarthritis - Postoperative day 1 status post left total hip arthroplasty Plan: 1. Left hip osteoarthritis - left total hip arthroplasty performed yesterday, 08/09/2022. Patient stable at bedside this morning. Patient did develop physical therapy today. Patient does have a walker for home. Discharge home today with health services. 2. Appreciate medical management 3. Pain management - [place] 4. DVT prophylaxis - Xarelto in hospital. Eliquis 2.5 mg BID x 2 weeks once home 5. GI ppx - senna in hospital; Colace once home 6. PT/OT - weightbearing as tolerated with walker 7. Encourage incentive spirometer use 8. Discharge planning - home with health services today, 08/10/2022 Time with Patient: Less than 30
--- NOTE | 2022-08-10 12:33 | P.PN ---
Subjective Progress Note Date: 08/10/22 (delayed charting seen at 1005) Patient is a 71-year-old male with hypertension, or stroke. His, and gout presented for elective left total hip arthroplasty. Patient seen and examined at bedside. He does report some pain in his left hip. However he was able to work with physical therapy and was able to get up and ambulate stairs. He reports he is hoping to go home today. He denies any chest pain, shortness breath, nausea, vomiting. General: nontoxic, no distress, appears at stated age Derm: warm, dry Head: atraumatic, normocephalic, symmetric Eyes: EOMI, no lid lag, anicteric sclera Mouth: no lip lesion, mucus membranes moist Cardiovascular: S1S2 reg, no murmur, positive posterior tibial pulse bilateral, Lungs: CTA bilateral, no rhonchi, no rales , no accessory muscle use Neuro: CN II-XI grossly intact, no focal neuro deficits Psych: Alert, oriented, appropriate affect Assessment/plan: Patient is a 71-year-old male status post left total hip arthroplasty Hypertension, controlled -Medication reconciliation addressed for discharge. Patient will resume atenolol, Norvasc, and lisinopril hydrochlorothiazide Nicotine dependency -Cessation Objective - Vital Signs Vital signs: Vital Signs Temp 97.9 F 08/10/22 08:00 Pulse 71 08/10/22 08:27 Resp 18 08/10/22 08:00 BP 144/65 08/10/22 08:27 Pulse Ox 95 08/10/22 08:27 FiO2 Intake & Output 08/09/22 08/10/22 08/10/22 18:59 06:59 18:59 Intake Total 1200 Output Total 300 200 Balance 900 -200 Weight 115.1 kg 115.1 kg Intake: IV 1200 Output: Urine 200 Estimated Blood Loss 300 Other: Voiding Method Toilet Toilet # Voids 1
[2022-08-10 14:28] LABS: HCT 31.8 % (39.6-50.0); HGB 10.8 g/dL (13.0-17.0); MCH 30.5 pg (27.0-32.0); MCV 89.8 fL (80.0-97.0); NRBC Per 100 WBC 0 /100 WBCS (0.0-0.0); Platelet Count 281 X 10*3/uL (140-440); RBC 3.54 X 10*6/uL (4.40-5.60); RDW 13.1 % (11.5-14.5)
[2022-08-10 15:26] LABS: African American GFR (CKD) 86.8 (60.0-200.0); Anion Gap 10.5 mmol/L (10.00-18.00); BUN/Creat Ratio 24.3 Ratio (12.00-20.00); Blood Urea Nitrogen 24.3 mg/dL (9.0-27.0); Calcium 9.1 mg/dL (8.7-10.3); Carbon Dioxide 24.5 mmol/L (20.0-27.5); Non-African American GFR(CKD) 74.9 (60.0-200.0); Potassium 4.4 mmol/L (3.5-5.5)
[2022-08-10 16:54] LABS: Basophils # (M) 0.18 X 10*3/uL (0.00-0.10); Eosinophils # (M) 0 X 10*3/uL (0.04-0.35); Monocytes # (M) 0.72 X 10*3/uL (0.20-1.00); Neutrophils % (M) 40 %
== END 2022-08-10 12:53 | disposition home health service (06) ==
LOC: OR 11:04 → 4SSUR 15:08 → OR 08-10 12:53
PROVIDERS: ATTEND Orthopaedic Surgery
DX: M16.12 Unilateral primary osteoarthritis, left hip (principal); G89.18 Other acute postprocedural pain; I10 Essential (primary) hypertension; F17.210 Nicotine dependence, cigarettes, uncomplicated; Z79.899 Other long term (current) drug therapy; Z79.890 Hormone replacement therapy
CPT/HCPCS: 94760; 97161; 97165; 64999; 86900; 86901; 80048; 85025; 86850; 73501; 27130; C1776; S4990 ×2; J2250; J0360; J1100; J0690; J2405; J3010; J1170 ×2; 88300

== ENCOUNTER → 2024-01-11 | Outpatient (CLI) | payer OTHER ==
--- NOTE | 2024-01-11 10:36 | XR ---
EXAMINATION TYPE: XR Hip Complete RT DATE OF EXAM: 01/11/2024 CLINICAL HISTORY: pain TECHNIQUE: AP and frogleg views of the right hip are obtained. COMPARISON: None. FINDINGS: There is no acute fracture/dislocation evident. The joint space appears mild degenerativ e joint space narrowing. The overlying soft tissue appears unremarkable. IMPRESSION: 1. There is no acute fracture or dislocation. ICD 10 NO FRACTURE, INITIAL EVALUATION
== END | disposition home or self-care (01) ==
LOC: RADXRMAIN 10:09
PROVIDERS: ATTEND Orthopaedic Surgery
DX: M25.551 Pain in right hip (principal)
CPT/HCPCS: 73502